=== PATIENT | male | born 1950 | race Caucasian/White ===

== ENCOUNTER → 2017-08-11 | Outpatient (CLI) | payer OTHER, MEDICARE | LOC: FIMAGING 12:50 | PROVIDERS: ATTEND Physician Assistant | DX: Z09 Encounter for follow-up examination after completed treatment for conditions other than malignant neoplasm (principal); Z98.1 Arthrodesis status ==

== ENCOUNTER → 2018-01-16 | Outpatient (CLI) | payer OTHER | LOC: FIMAGING 18:19 | PROVIDERS: ATTEND Physician Assistant | DX: M48.061 Spinal stenosis, lumbar region without neurogenic claudication (principal); M99.73 Connective tissue and disc stenosis of intervertebral foramina of lumbar region; Z98.1 Arthrodesis status ==

== ENCOUNTER → 2018-01-16 | Outpatient (CLI) | payer OTHER | LOC: FIMAGING 12:21 | PROVIDERS: ATTEND Physician Assistant | DX: Z09 Encounter for follow-up examination after completed treatment for conditions other than malignant neoplasm (principal); Z98.1 Arthrodesis status ==

== ENCOUNTER 2018-01-26 07:30 | Inpatient (IN) | payer OTHER ==
[2018-01-26] MEDS ORDERED: ceFAZolin 2 GM/SWFI 2 GM/20 ML SYR IVP ONE (08:12)
[2018-01-26] MEDS ORDERED: ACETAMINOPHEN 500 MG TAB PO ONE (08:12)
[2018-01-26] MEDS ORDERED: GABAPENTIN 300 MG CAP PO ONE (08:12)
[2018-01-26] MEDS ORDERED: LIDOCAINE 1% 2 ML INJ ID PRN (08:13)
[2018-01-26] MEDS ORDERED: LR 1,000 ML IV ONE (08:13)
[2018-01-26] MEDS ORDERED: CHLORHEXIDINE GLUC HIBICLENS 118 ML BTL TP ONE (09:15)
[2018-01-26] MEDS ORDERED: BUPIVACAINE 0.25% 30 ML SDV ONE (09:15)
[2018-01-26] MEDS ORDERED: THROMBIN (BOVINE) 20,000 UNIT VIAL TP ONE ×2 (09:15→12:29)
[2018-01-26] MEDS ORDERED: BACITRACIN 50,000 UNITS/10 ML SYR IRR ONE (09:15)
[2018-01-26] MEDS ORDERED: EPINEPHrine 1 MG/ML INJ ONE (09:18)
[2018-01-26] MEDS ORDERED: MIDAZOLAM 2 MG/2 ML VIAL IVP ONE (09:21)
--- NOTE | 2018-01-26 09:21 | PDANEPAE ---
ANE History of Present Illness here for TLIF ANE Past Medical History - Cardiovascular History Hx Hypertension: No Hx Arrhythmias: No Hx Chest Pain: No Hx Coronary Artery / Peripheral Vascular Disease: No Hx CHF / Valvular Disease: No Hx Palpitations: No - Pulmonary History Hx COPD: No Hx Asthma/Reactive Airway Disease: No Hx Recent Upper Respiratory Infection: No Hx Oxygen in Use at Home: No Hx Sleep Apnea: No Sleep Apnea Screening Result - Last Documented: Negative - Neurologic History Hx Cerebrovascular Accident: No Hx Seizures: No Hx Dementia: No Neurologic History Comment: previous lumbar surgery with clarence - Endocrine History Hx Diabetes: No - Renal History Hx Renal Disorders: No - Liver History Hx Hepatic Disorders: No - Neurological & Psychiatric Hx Hx Neurological and Psychiatric Disorders: Yes Neurological / Psychiatric History Comment: [facility] - Cancer History Hx Cancer: No - Congenital Disorder History Hx Congenital Disorders: No - GI History Hx Gastrointestinal Disorders: No - Other Health History Other Health History: wears glasses - Chronic Pain History Chronic Pain: Yes (lower back) - Surgical History Prior Surgeries: left hip repair from [place]. bilateral knee scopes 2001. l3,4,5 lumbar fusion with Clarence 2013 ANE Review of Systems Review of systems is: negative Review of Systems: - Exercise capacity Exercise capacity: >=4 METS METS (RN): 4 METS ANE Patient History - Allergies Allergies/Adverse Reactions: No Allergies [NKDA] Allergy (Verified 01/22/18 11:13) - Home Medications Home medications: home medication list seen and reviewed Home Medications: Ascorbic Acid [Vitamin C 500 mg (*)] 1,000 mg PO DAILY 01/18/18 [Last Taken 03/09] Carboxymethylcellulose 1% [Refresh Celluvisc (*)] 1 drop EACHEYE DAILY PRN 01/18 [Last Taken 01/25/18] Cholecalciferol Vit D3 [Vitamin D3 (*)] 1,000 units PO DAILY 01/18/18 [Last Taken 01/25/18] Ferrous Sulfate [Ferrous Sulf 325 MG (*)] 325 mg PO DAILY 01/18/18 [Last Taken 01/25/18] Glucosamine/Chondroitin [Glucosamine/Chondroitin (*)] 1 each PO DAILY 01/18/18 [ Last Taken 01/25/18] Herbals/Supplements -Info Only 1 ea PO DAILY 01/18/18 [Last Taken 01/25/18] Hydrocodone/APAP 5/325 [Joppa 5/325 (*)] 0.5 - 1 each PO HS 01/18/18 [Last Taken 01/25/18] Methocarbamol [Robaxin 750 mg (*)] 750 mg PO QID PRN 01/18/18 [Last Taken ] Multivitamins [Multivitamin (*)] 1 each PO DAILY 01/18/18 [Last Taken 01/25/18] - NPO status NPO Status: no food or drink >8 hours NPO Since - Liquids (Date): 01/25/18 NPO Since - Liquids (Time): 22:00 NPO Since - Solids (Date): 01/25/18 NPO Since - Solids (Time): 18:00 - Smoking Hx Smoking Status: Never smoked - Family Anes Hx Family Hx Anesthesia Complications: none ANE Labs/Vital Signs - Labs Result Diagrams: 01/26/18 08:45 - Vital Signs Vital Signs: reviewed preoperatively; see RN documention for details Blood Pressure: 152/88 Heart Rate: 62 Respiratory Rate: 12 O2 Sat (%): 97 Height: 170.18 cm Weight: 68.039 kg ANE Physical Exam - Airway Neck exam: FROM Mallampati Score: Class 1 - Pulmonary Pulmonary: no respiratory distress - Cardiovascular Cardiovascular: regular rate and rhythym - ASA Status ASA Status: II ANE Anesthesia Plan Anesthesia Plan: general endotracheal anesthesia
[2018-01-26] MEDS ORDERED: fentaNYL 250 MCG/5 ML INJ ONE (09:52)
[2018-01-26] MEDS ORDERED: PROPOFOL/EMULSION 500 MG/50 ML BOTTLE IV ONE ×2 (09:53→12:48)
[2018-01-26] MEDS ORDERED: PHENYLEPHRINE HCL 100 MCG/ML SYR ONE (10:21)
[2018-01-26] MEDS ORDERED: BISACODYL 10 MG SUPP PR PRN (10:50)
[2018-01-26] MEDS ORDERED: ACETAMINOPHEN 325 MG TAB PO PRN (10:50)
[2018-01-26] MEDS ORDERED: morphINE PCA 30 MG/30 ML PCA IV PRN (10:50)
[2018-01-26] MEDS ORDERED: ONDANSETRON DISINTEGRATING 4 MG TAB PO PRN (10:50)
[2018-01-26] MEDS ORDERED: ONDANSETRON 4 MG/2 ML VIAL IVP PRN ×2 (10:50→11:12)
[2018-01-26] MEDS ORDERED: diphenhydrAMINE 25 MG CAP PO PRN (10:50)
[2018-01-26] MEDS ORDERED: MAGNESIUM HYDROXIDE 30 ML UDCUP PO PRN (10:50)
[2018-01-26] MEDS ORDERED: NALOXONE HCL 0.4 MG/ML INJ IVP PRN ×2 (10:50→11:12)
[2018-01-26] MEDS ORDERED: LACTULOSE 20 GM/30 ML UDCUP PO PRN (10:50)
[2018-01-26] MEDS ORDERED: oxyCODONE IR 5 MG TAB PO PRN (10:50)
--- NOTE | 2018-01-26 10:51 | PDHPUP ---
History & Physical Update H&P update statement: This history and physical update is based on an assessment of the patient which was completed after admission or registration (within 24 hours), but prior to the surgery/procedure. H&P update: H&P reviewed & patient examined, no change in patient's condition since H&P completed
[2018-01-26] MEDS ORDERED: CARBOXYMETHYLCELLULOSE 1% 0.4 ML DROPERETTE EACHEYE PRN (10:56)
[2018-01-26] MEDS ORDERED: PROPOFOL 200 MG/20 ML VIAL ONE (11:08)
[2018-01-26] MEDS ORDERED: DIAZEPAM 5 MG/ML 1 ML SYR IVP PRN (11:12)
[2018-01-26] MEDS ORDERED: LABETALOL HCL 5 MG/ML 20 ML MDV IVP PRN (11:12)
[2018-01-26] MEDS ORDERED: ALBUTEROL 3 ML DEYVIAL IH PRN (11:12)
[2018-01-26] MEDS ORDERED: fentaNYL 100 MCG/2 ML INJ ONE (13:49)
[2018-01-26] MEDS ORDERED: ceFAZolin 2 GM/DEXTROSE 100 ML IV SCH (14:00)
--- NOTE | 2018-01-26 14:16 | POSTOPPROG ---
Post Op Note Date of Operation: 01/26/18 Surgeon: Ludy Olmstead Cardiopulmonary Physical Therapist: Agata Krause NP Anesthesia: GET(General Endotracheal) Pre-op Diagnosis: ASD, Lumbar stenosis Procedure: L3-4 TLIF with tie into existing hardware Inf/Abcess present in the surg proc area at time of surgery?: No Depth: Deep Incisional (Fascial) EBL: 100-500 Total fluids administered: see anesthesia Complications: none Drains: Erasto Soto Date of Surgery: 01/26/18 Post Op Day: 0 Assessment/Plan: Assessment: 67 year old s/p L3-4 TLIF with tie into existing hardware for low back pain Plan: -Admit med surg -PT/OT -lumbar Xrays in am -Wear brace when out of bed-patient has brace already -Pain management, LEGAL EXECUTIVE ASSISTANT ordered if needed -Please call neurosurgery with questions/concerns Subjective: Patient waking up in PACU Objective: Waking up in PACU Following commands No droop 5/5 BUE, BLE Sensation intact to light touch BLE Dressing CDI RAGHAV patent Appropriate Neuro Check Frequency Ordered: Yes
--- NOTE | 2018-01-26 14:45 | PDMN ---
Medical Necessity Medical necessity: IP surgery per [facility] cpt [id number] TLIF
[2018-01-26] MEDS: METHOCARBAMOL 750 MG TAB PO SCH ×3 (16:05→21:02)
[2018-01-26] MEDS: GABAPENTIN 300 MG CAP PO SCH ×2 (16:13→21:02)
--- NOTE | 2018-01-26 17:08 | GOP ---
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 Axial low back pain. POSTOPERATIVE DIAGNOSIS: PROCEDURE PERFORMED: Removal of posterior segmental instrumentation L4. Posterior lateral intervert ebral arthrodesis L3-4. New spinal instrumentation across a single interspace L3-4, [id number]. Same inc ision bone graft harvest, placement of biomechanical intervertebral device L3-4, spinal stereotaxy, m icroscope. FINDINGS: ESTIMATED BLOOD LOSS: 200 cc. INDICATIONS: The patient is a middle-aged gentleman with a prior history of a successful spinal fusi on at L4-5, L5-S1 who, over the last 3-4 weeks, has developed excruciating axial low back pain and so me left iliac crest pain. An MRI was done. He could not even get out of bed on a few of the days be cause the pain was so severe in nature. The MRI demonstrated the development of severe adjacent segm ent disease and stenosis at the L3-4 level. There was severe discogenic degenerative change of the d isk and retrolisthesis of L3 on L4. There were some early changes at L2-3, but nothing severe warran ting surgery. I suggested a single-level adjacent segment fusion at the L3-4 level. I explained to the patient the risks including the risk of CSF leak, continued symptoms, nerve injury, pseudoarthros is, and further adjacent segment disease. There was a chance surgery would fail to alleviate his jones n. He knew there was risk of screw and hardware malposition and malfunction. He wanted to proceed d espite the risks. DESCRIPTION OF PROCEDURE: The patient was taken to the operating room, placed in supine position. G eneral anesthesia was begun. He was flipped prone onto the Erasto table. Care was taken to pad all points of contact. His back was sterilely prepped and draped in the usual fashion. A localizing x- ray was taken. We made a midline incision using the prior incision, extended it rostrally about 3 cm . The subcutaneous tissue was dissected down through the fascia. A subperiosteal dissection was mad e down the lamina of L3, the inferior lamina of L2 and the rostral lamina of L4 were exposed. We in fact did not use the Bovie cautery, but instead we were using the PlasmaBlade in this case, because t he patient had prior implanted hardware in the lumbar spine. The PlasmaBlade was used for the entire dissection. We exposed the prior hardware at L4 and L5, and we then cut the abimael with a carbide drill bit below th e L4 Tulip. We then removed the abimael and the L4 screws without difficulty. There was solid posterola teral arthrodesis at L4-5. We did not fully expose the L5-S1, and so I could not comment at that lev el. We made sure the axial connectors fit on these rods. We then attached the Stealth reference fra me, performed an O-arm spin, and using frameless Stealth stereotaxy, placed pedicle screws bilaterall y at L3. The screws stimulated at acceptable levels. An O-arm spin was made and the screws were in excellent position. We took 50 mm titanium rods to connect to the axial connectors. On the left-hand side, the axial con nector had a trajectory that was not in the correct plane to tie into the L3 screw. We therefore calderon t the titanium abimael at a sharp angle where it entered the axial connector. A single bend was made, an d we cut the abimael to fit. We then used a 50 mm abimael contralaterally on the right-hand side, increased the bend slightly on this abimael, but we got an excellent fit from this abimael. We placed set screws into the axial connectors and then placed set screws in the Tulips, and we over-distracted at L3-4. After we did the TLIF, we then released the distraction to reduce the over distraction, and we created a g reat lordotic curve at the end of the case. After distracting, we had removed all the soft tissue off the bone at L3 and L4. We then introduced the operating microscope and we drilled bilateral L3 laminectomies to decompress the thecal sac, and we performed a complete rostral hemilaminectomy of L4, removing much of the rostral lamina of L4, dec ompressing down to the mid pedicle of L4. We removed the IAP-SAP complex at L3-4 on the right-hand s heather to allow access to the intervertebral space. We had decompressed both of the traversing L4 nerve roots. After doing this, we then went to the right-hand side, where we incised the L3-4 disk, remov ed the disk and the cartilaginous endplates and then sized the space and chose a 7 x 28 mm device. T he device was inserted as well as bone autograft. We use 0.7 mg of BMP in the interspace, followed b y the device, which was expanded under fluoroscopic guidance. The device was wholly contained within the disk space. There was no evidence of any nerve contact by the device, and an x-ray was taken co nfirming its location. We then released our distraction at L3-4 and then final tightened the cap scr ews according to company specification. We then decorticated all the remaining posterolateral bone b ilaterally. We carefully inspected the O-arm spin and there was solid bony arthrodesis both at L4-5 and L5-S1. W e had confirmed the L4-5 arthrodesis by visual inspection after removal of the L4 screws. We placed bony autograft and BMP posterolaterally bilaterally, followed by a subfascial drain, and then closed the incision in multiple layers using Vicryl sutures. Steri-Strips were applied to the skin. The pa tient was reversed from anesthesia, extubated, and transferred to recovery room in stable condition. COMPLICATIONS: None. INSTRUMENTATION REMOVED: Solera 4.75 system. INSTRUMENTATION PLACED: Solera 5.5 mm screws with 5.5 mm titanium rods and axial connectors between L3 and L5. We used a 7 x 28 mm Elevate device, and we used 1.4 mg of bone morphogenic protein. /[id number]/MODL
[2018-01-26] MEDS: ceFAZolin 2 GM/SWFI 2 GM/20 ML SYR IVP SCH (17:29)
[2018-01-26] MEDS: POLYETHYLENE GLYCOL 3350 17 GM PKT PO PRN (17:36)
[2018-01-26] MEDS: SENNOSIDES/DOCUSATE SODIUM TAB PO SCH (21:02)
[2018-01-26] MEDS: FAMOTIDINE 20 MG TAB PO SCH (21:02)
[2018-01-27] MEDS: ceFAZolin 2 GM/SWFI 2 GM/20 ML SYR IVP SCH (01:19)
[2018-01-27] MEDS: POLYETHYLENE GLYCOL 3350 17 GM PKT PO PRN (05:31)
[2018-01-27] MEDS: METHOCARBAMOL 750 MG TAB PO SCH ×2 (05:31→12:09)
[2018-01-27] MEDS: GABAPENTIN 300 MG CAP PO SCH (05:31)
[2018-01-27 05:58] LABS: PLATELET COUNT 218 10^3/uL (150-400)
[2018-01-27] MEDS: SENNOSIDES/DOCUSATE SODIUM TAB PO SCH (07:41)
[2018-01-27] MEDS: FAMOTIDINE 20 MG TAB PO SCH (07:41)
--- NOTE | 2018-01-27 10:44 | NEUSURGPN ---
Date of Surgery: 01/26/18 Post Op Day: 1 Assessment/Plan: Assessment: 67 year old s/p L3-4 TLIF with tie into existing hardware for low back pain POD#1 Plan: -Patient may discharge home today following completion of post op xrays -Remove RAGHAV -PT/OT -Wear brace when out of bed -Pain management, pain well controlled with current oral medications -Please call neurosurgery with questions/concerns Subjective: Patient doing well this am, no complaints Objective: AxO x3 PERRL EOMI 5/5 BUE, BLE sensation intact light touch BLE Dressing CDI Neuro Check Frequency: per routine Urinary Catheter in Place: No Catheter Insertion Date: 01/26/18 - Physician Discussed Patient with DrAna: Ishan Neurosurgery Physical Exam - Vitals, I&O, Labs I and O 01/26/18 01/27/18 01/28/18 05:59 05:59 05:59 Intake Total 2350 Output Total 480 490 Balance 1870 -490 Weight 68.039 kg Intake: Oral (ml) 550 IV Intake (ml) 1800 Output: Urine (ml) 200 450 Catheter 200 Toilet 450 Estimated Blood Loss (ml) 200 RAGHAV Drain Output (ml) 80 40 Right Erasto Soto 80 40 Other: Intake Quantity Yes Sufficient Number of Voids Toilet 1 Vital Signs Temp Pulse Resp BP Pulse Ox 37.0 C 65 16 123/68 H 93 01/27/18 07:22 01/27/18 07:22 01/27/18 07:22 01/27/18 07:22 01/27/18 07:22 Laboratory Results 01/27/18 05:21 01/27/18 05:21 ICD10 Worksheet Patient Problems: Problems Problem Status Onset Lumbar stenosis Acute - ICD10 Problem Qualifiers (1) Lumbar stenosis
[2018-01-27 11:32] VITALS: BP 107/66
[2018-01-29] MEDS ORDERED: ENOXAPARIN 40 MG/0.4 ML SYR SC SCH (09:00)
--- NOTE | 2018-01-30 10:45 | GPROG ---
[f rep st] PROGRESS NOTE POST-ANESTHESIA CARE NOTE This patient underwent an L3-L4 TLIF with Dr. Edy Olmstead. The patient was taken to recovery room in stable condition. The patient's pain and nausea were adequately controlled. There were no apparent complications from this anesthetic. /[id number]/MODL
--- NOTE | 2018-02-07 19:33 | GPROG ---
[f rep st] PROGRESS NOTE POSTANESTHESIA CARE NOTE. This patient underwent L3, L4 T-LIFT with Dr. Edy Olmstead. The patient was taken to PACU in stable co ndition. The patient's pain and nausea were adequately controlled. There were no apparent complicat ions from this anesthetic. /[id number]/MODL
--- NOTE | 2018-02-08 14:16 | GDS ---
[f rep st] DISCHARGE SUMMARY PRIMARY DIAGNOSES: Adjacent segment disease, severe spinal stenosis L3-4 above a prior L4-5, L5-S1 f usion, axial low back pain. OPERATION/PROCEDURE: Removal of posterior segmental instrumentation at L4, posterolateral interverte bral arthrodesis at L3-4, new spinal instrumentation across the single interspace at L3-4 with same i ncision bone graft harvest and placement of biomechanical intervertebral device at L3-[address] Edy Olmstead at [facility] on 01/26/2018. HOSPITAL COURSE: The patient is a middle-aged gentleman with a prior history of a successful L4 to S 1 fusion. Over the course of the past 4 weeks prior to his surgery, he developed excruciating axial low back pain and some pain in the left iliac crest. An MRI was done which showed adjacent segment d isease at L3-4. Due to the severity of the stenosis, recommendation for further surgery was given to the patient. He understood these risks and wished to proceed. He tolerated the procedure fine, was admitted postoperatively. Postoperative day #1, he underwent x-rays of the lumbar spine on 01/28/20 18, which showed diskectomies and posterior fusion construct from L3 to S1 with hardware intact. The re were some mild degenerative changes and retrolisthesis at the adjacent segment of L2-3, but we bel ieved this was not symptomatic and was not addressed. He worked with PT and OT. On 01/27/2018, he m et criteria for discharge and was discharged home. Please see med rec form. His RAGHAV was removed. He was fit for a custom LSO brace that he will wear whenever out of bed. We talked about avoidance of any anti-inflammatory drugs; no bending, twisting, or lifting. He will follow up with us likely at 2 weeks and at 2 months, 3-6 months, 9 months to a year, year and a half to 2 years with x-rays when c linically appropriate. CONSULTS: None. COMPLICATIONS: None. DISCHARGE CONDITION: Stable and improved. DISCHARGE INSTRUCTIONS: Standard discharge instructions given to the patient following an instrument ed lumbar fusion. We talked about worsening symptoms, when to call and what to watch out for. He wi ll follow up with us as directed above for his postoperative care. He will wear his brace as directe d, and recommendations to adhere to restrictions were given. /[id number]/MODL
== END 2018-01-27 13:16 | disposition home or self-care (01) | DRG 460 ==
LOC: F3N 07:51
PROVIDERS: ADMIT Neurological Surgery; ATTEND Neurological Surgery
DX: M48.061 Spinal stenosis, lumbar region without neurogenic claudication (principal); F43.10 Post-traumatic stress disorder, unspecified; M51.36 Other intervertebral disc degeneration, lumbar region; M54.16 Radiculopathy, lumbar region; M43.16 Spondylolisthesis, lumbar region; Z98.1 Arthrodesis status
CPT/HCPCS: 97161-GP; 97165-GO; C1713; G8978-GP-CI; G8979-GP-CI; G8980-GP-CI; G8987-GO-CI; G8988-GO-CI; G8989-GO-CI; J0171; J0690; J2250; J2370; J2704; J3010

== ENCOUNTER → 2018-03-20 | Outpatient (CLI) | payer OTHER | LOC: FIMAGING 13:30 | PROVIDERS: ATTEND Physician Assistant | DX: Z98.1 Arthrodesis status (principal) ==

== ENCOUNTER → 2018-07-09 | Outpatient (CLI) | payer OTHER | LOC: FIMAGING 13:26 | PROVIDERS: ATTEND Physician Assistant | DX: Z09 Encounter for follow-up examination after completed treatment for conditions other than malignant neoplasm (principal); M43.16 Spondylolisthesis, lumbar region; Z98.1 Arthrodesis status ==

== ENCOUNTER → 2019-01-29 | Outpatient (CLI) | payer OTHER, MEDICARE | LOC: FIMAGING 13:08 | PROVIDERS: ATTEND Neurological Surgery | DX: M51.36 Other intervertebral disc degeneration, lumbar region (principal); M48.07 Spinal stenosis, lumbosacral region; Z98.1 Arthrodesis status ==